=== PATIENT | female | born 1985 | race African-American/Black ===

== ENCOUNTER 2016-12-02 02:13 | Emergency (ER) | payer SELFPAY ==
[~2016-12-02] VITALS: Ht 170.2 cm; Wt 75.0 kg
[2016-12-02 03:54] LABS: BASOPHILS % 0.4 % (0.0-2.0); DIFFERENTIAL COMMENT 0; EOSINOPHILS % 2.1 % (0.0-5.0); HEMATOCRIT. 26.4 % (36.0-48.0); HEMOGLOBIN. 8.1 g/dL (12.0-16.0); LYMPHOCYTES % 23.7 % (20.0-50.0); MEAN CORPUSCULAR HEMOGLOBIN 22.4 pg (28.0-32.0); MEAN CORPUSCULAR HGB CONC 30.8 g/dL (31.0-37.0); MEAN CORPUSCULAR VOLUME 72.6 fL (81.0-99.0); MEAN PLATELET VOLUME 7.5 fl (7.4-10.4); MONOCYTES % 9.1 % (2.0-8.0); NEUTROPHILS % 64.7 % (40.0-76.0); PLATELET 236 x1000/uL (130-400); RED BLOOD CELL COUNT 3.63 mill/uL (4.2-5.4); RED CELL DISTRIBUTION WIDTH 18.7 % (11.6-14.6); WHITE BLOOD COUNT 5.5 x1000/uL (4.5-11.0)
[2016-12-02 04:01] LABS: CHLORIDE 111 mEq/L (98-107); INDEX HEMOLYSI 1 (1-3); INDEX ICTERIC 1 (1-4); INDEX LIPEMIC 1 (1-3)
[2016-12-02 04:05] LABS: HCG SCREEN NEGATIVE
[2016-12-02 04:09] LABS: ALBUMIN 2.9 g/dL (3.4-5.0); ANION GAP 12; CALCIUM 7.5 mg/dL (8.5-10.1); CARBON DIOXIDE 25 mEq/L (21-32); UREA NITROGEN BLOOD 10 mg/dL (7-21); eGFR > 60 mL/min (>60)
[2016-12-02 04:10] LABS: ALANINE AMINOTRANSFERASE 78 IU/L (13-61); AMYLASE 40 IU/L (25-115); LIPASE 108 IU/L (73-393)
[2016-12-02] MEDS ORDERED: MORPHINE SULFATE 10 MG/ML CPJ SUBCUT ONE (04:15)
[2016-12-02] MEDS ORDERED: ONDANSETRON 4MG ODT PO ONE (04:15)
[2016-12-02 05:05] VITALS: BP 138/78
== END 2016-12-02 05:07 | disposition home or self-care (01) ==
LOC: ER 02:17
DX: K11.20 Sialoadenitis, unspecified (principal); I82.409 Acute embolism and thrombosis of unspecified deep veins of unspecified lower extremity; I25.2 Old myocardial infarction; Z90.89 Acquired absence of other organs; Z98.890 Other specified postprocedural states
CPT/HCPCS: 36415; 80053; 81025; 82150; 83690; 84703; 85025; 96372; 99284; J2270; Q0162; Z7610

== ENCOUNTER 2016-12-07 23:54 | Emergency (ER) | payer SELFPAY ==
[~2016-12-07] VITALS: Ht 170.2 cm; Wt 75.0 kg
[2016-12-08] MEDS ORDERED: ONDANSETRON HCL 4MG/2ML VIAL IM ONE (02:30)
[2016-12-08] MEDS ORDERED: MORPHINE SULFATE 10 MG/ML CPJ IM ONE (02:30)
[2016-12-08 04:25] VITALS: BP 134/79
== END 2016-12-08 05:02 | disposition home or self-care (01) ==
LOC: ER 12-08 00:02
DX: K08.89 Other specified disorders of teeth and supporting structures (principal); K11.20 Sialoadenitis, unspecified; Z88.6 Allergy status to analgesic agent; Z88.8 Allergy status to other drugs, medicaments and biological substances; Z90.49 Acquired absence of other specified parts of digestive tract
CPT/HCPCS: 81025; 96372; 99284; J2270; J2405